=== PATIENT | female | born 1975 | race Caucasian/White ===

== ENCOUNTER 2016-12-18 09:04 | Emergency (ER) | payer MEDICAID ==
[~2016-12-18] VITALS: Wt 72.0 kg
[2016-12-18] MEDS ORDERED: IBUPROFEN 600 MG TAB PO ONE (10:30)
--- NOTE | 2016-12-18 10:47 | RADRPT ---
PROCEDURE: Left ankle series. CLINICAL INDICATION: Left ankle pain TECHNIQUE: Three views of the left ankle were performed. COMPARISON: None. FINDINGS: There is normal mineralization and alignment of the bones of the left ankle. No acute fracture or d islocation is seen. Joint spaces are well maintained. No osteophytes or erosions are identified. N o joint effusion is identified. The soft tissues are within normal limits. IMPRESSION: 1. Unremarkable left ankle radiograph series. RPTAT: AA .Michael Lopez MD, MD Date Time Electronically viewed and signed by .Michael Lopez MD, on 12/18/2016 10:47 .B/
--- NOTE | 2016-12-18 10:47 | RADRPT ---
PROCEDURE: XR Tibia and Fibula. CLINICAL INDICATION: Left lower leg pain TECHNIQUE: Two views of the left tibia and fibula are available for review. COMPARISON: None available FINDINGS: There is normal mineralization and alignment of the bones of the left tibia and fibula. There is no evidence of acute fracture or dislocation. The suboptimally visualized joint spaces appear grossly within normal limits. The soft tissues are unremarkable. IMPRESSION: 1. Unremarkable left tibia and fibula x-ray series. RPTAT: AA .Michael Lopez MD, MD Date Time Electronically viewed and signed by .Michael Lopez MD, on 12/18/2016 10:47 .B/
[2016-12-18] MEDS ORDERED: IBUP-1542 PO (10:57)
--- NOTE | 2016-12-18 11:04 | ERD ---
ER Documentation Chief Complaint Date/Time DATE: 12/18/16 TIME: 11:01 Chief Complaint LEFT ANKLE INJURY/SWELLING X3 DAYS HPI This is a 41-year-old female presents to the ER after she twisted her ankle 3 days ago while cleaning a house. Patient states that area is swollen and is painful whenever she moves her foot. Patient denies any numbness or tingling to the area. She has not had any fevers or chills. She has tried ibuprofen for her pain however has not helped. ROS 12 point review of systems was done, all negative except per HPI. Medications Home Meds Active Scripts Ibuprofen* (Motrin*) 600 Mg Tab, 600 MG PO Q6, #30 TAB Prov:NACHO TAYLOR Vladimir 12/18/16 Allergies Allergies: Coded Allergies: No Known Allergy (Verified , 12/18/16) PMhx/Soc Medical and Surgical Hx: pt denies Medical Hx, pt denies Surgical Hx History of Surgery: No Anesthesia Reaction: No Hx Neurological Disorder: No Hx Respiratory Disorders: No Hx Cardiac Disorders: No Hx Psychiatric Problems: No Hx Miscellaneous Medical Probl: No Hx Alcohol Use: No Hx Substance Use: No Hx Tobacco Use: No Smoking Status: Never smoker Physical Exam Vitals Vital Signs Date Time Temp Pulse Resp B/P Pulse Ox O2 Delivery O2 Flow Rate FiO2 12/18/16 09:10 97.5 86 17 125/81 99 Physical Exam GENERAL: The patient is well developed and appropriate for usual state of health , in no apparent distress. HEENT: Atraumatic CHEST: Clear to auscultation bilaterally. There are no rales, wheezes or rhonchi. HEART: Regular rate and rhythm. No murmurs, clicks, rubs or gallops. EXTREMITIES: Ankle-patient is able to bear weight and ambulate without any pain. left ankle is without obvious asymmetry or deformity when compared to the right ankle. Patient can flex/ext, invert/khris ankle. No obvious surface trauma, ecchymosis. tender to palpation over the lateral malleolus. Anterior talofibular ligament, posterior talofibular ligament, calcaneofibular ligament NT and without swelling. Not tender or deformity of the midfoot or over the proximal fifth metatarsal, good dorsalis pedis and posterior tibial pulses and sensation to light touch is normal. Talar tilt test is negative for ligament laxity to valgus or varus stress. Negative anterior drawer.. Peroneal nerve is intact with strong eversion and plantarflexion. Negative squeeze test. Knee: Full and non painful ROM, not TTP. NEURO: Alert and oriented SKIN: There is no apparent rash or petechia. The skin is warm and dry. Results 24 hrs Current Medications Medications (Trade) Dose Ordered Sig/Rosibel Route PRN Reason Start Time Stop Time Status Last Admin Dose Admin Ibuprofen (Motrin) 600 mg ONCE ONCE PO 12/18/16 10:30 12/18/16 10:31 DC 12/18/16 10:14 Procedures/MDM Differential diagnosis includes but is not limited to ankle sprain, ankle fracture, Achilles tendon rupture, proximal fibula fracture, distal fibula avulsion fracture, bimalleolar or trimalleolar fracture, peroneal nerve injury, acute compartment syndrome. This is likely an ankle sprain. There is no evidence of fracture dislocation on x-rays. Patient is neurovascularly intact and is able to ambulate in the ER without any problems. She was given an Keyshawn wrap and crutches. She will be sent home with ibuprofen. She is to follow-up with her primary care doctor within 1-2 days or return to ER sooner if symptoms worsen. My medical decision making shared with the patient she understands and agrees with plan. Departure Diagnosis: Primary Impression: Ankle sprain Condition: Stable Patient Instructions: Treating Ankle Sprains Additional Instructions: Call your primary care doctor TOMORROW for an appointment during the next 1-2 days.See the doctor sooner or return here if your condition worsens before your appointment time. NACHO TAYLOR Dec 18, 2016 11:04
[2016-12-18 11:16] VITALS: RESP 18
== END 2016-12-18 11:29 | disposition home or self-care (01) ==
LOC: FTE 09:04
DX: S93.402A Sprain of unspecified ligament of left ankle, initial encounter (principal); X50.9XXA Other and unspecified overexertion or strenuous movements or postures, initial encounter; Y92.009 Unspecified place in unspecified non-institutional (private) residence as the place of occurrence of the external cause
CPT/HCPCS: 73590; 73610; Z7502; Z7610